=== PATIENT | male | born 1995 | race Caucasian/White ===

== ENCOUNTER 2017-01-19 13:48 | Emergency (ER) | payer OTHER ==
[2017-01-19 13:54] VITALS: O2SAT 96
--- NOTE | 2017-01-19 14:09 | EDPHY ---
H & P Stated Complaint: LAU AND "BODY SPASMS" 1ST EPISODE 1 WEEK [employer] Time Seen by Provider: 01/19/17 13:59 HPI/ROS: CHIEF COMPLAINT: Headache and spasms HISTORY OF PRESENT ILLNESS: The patient is a 21-year-old healthy man who comes to the emergency department sent from his primary Dr. Choudhury. He states that he has been having intermittent headaches recently and muscle spasms but that on Monday he had a severe headache the worst of his life. It began around 2 o' clock in the afternoon. He states that he began having muscle spasms throughout his entire body. He states that he was lying incapacitated on the ground for 13 hours until they stopped. He states that he began to loosen 8 that his legs were in family long and that every time he flipped over his body it was a new business transaction. Since that time he has had muscle soreness particularly in the evenings. He has also had return of his headache in the evenings. He did not lose consciousness. He denies chest pain or shortness of breath. He denies fevers or recent illness. He denies recent immunizations or trauma. No rashes. No seizure history. REVIEW OF SYSTEMS: Constitutional: denies: chills, fever, recent illness, recent injury EENTM: denies: blurred vision, double vision, nose congestion Respiratory: denies: cough, shortness of breath Cardiac: denies: chest pain, irregular heart rate, lightheadedness, palpitations Gastrointestinal/Abdominal: denies: abdominal pain, diarrhea, nausea, vomiting, blood streaked stools Genitourinary: denies: dysuria, frequency, hematuria, pain Musculoskeletal: See HPI Skin: denies: lesions, rash, jaundice, bruising Neurological: See HPI Hematologic/Lymphatic: denies: blood clots, easy bleeding, easy bruising Immunologic/allergic: denies: HIV/AIDS, transplant EXAM: GENERAL: Well-appearing, well-nourished and in no acute distress. HEAD: Atraumatic, normocephalic. EYES: Pupils equal round and reactive to light, extraocular movements intact, sclera anicteric, conjunctiva are normal. ENT: TMs normal, nares patent, oropharynx clear without exudates. Moist mucous membranes. NECK: Normal range of motion, supple without lymphadenopathy or JVD. LUNGS: Breath sounds clear to auscultation bilaterally and equal. No wheezes rales or rhonchi. HEART: Regular rate and rhythm without murmurs, rubs or gallops. ABDOMEN: Soft, nontender, normoactive bowel sounds. No guarding, no rebound. No masses appreciated. BACK: No CVA tenderness, no spinal tenderness, step-offs or deformities EXTREMITIES: Normal range of motion, no pitting or edema. No clubbing or cyanosis. NEUROLOGICAL: Cranial nerves II through XII grossly intact. Normal speech, normal gait. 5/5 strength, normal movement in all extremities, normal sensation , normal reflexes, ambulates without difficulty PSYCH: Normal mood, normal affect. SKIN: Warm, dry, normal turgor, no visible rashes or lesions. Source: Patient Exam Limitations: No limitations - Personal History Current Tetanus Diphtheria and Acellular Pertussis (TDAP): Yes - Medical/Surgical History Hx Asthma: No Hx Chronic Respiratory Disease: No Hx Diabetes: No Hx Cardiac Disease: No Hx Renal Disease: No Hx Cirrhosis: No Hx Alcoholism: No Other PMH: ESINOPHILIC GASTROENTERIIS - Family History Significant Family History: No pertinent family hx - Social History Smoking Status: Never smoked Alcohol Use: Sober Drug Use: None Constitutional: Initial Vital Signs Temperature (C) 37.0 C 01/19/17 13:52 Heart Rate 76 01/19/17 13:52 Respiratory Rate 16 01/19/17 13:52 Blood Pressure 136/65 H 01/19/17 13:52 O2 Sat (%) 96 01/19/17 13:52 O2 Delivery Mode Room Air Allergies/Adverse Reactions: banana Allergy (Verified 01/19/17 13:51) shrimp Allergy (Verified 01/19/17 13:51) Home Medications: Medication Instructions Recorded Flovent Diskus 01/19/17 Protonix 01/19/17 Singulair 01/19/17 Medical Decision Making - Diagnostics EKG Interpretation: An EKG obtained and was read and documented in trace view. Please see trace view for full reading and report. Sinus rhythm, no acute ischemic changes, ED Course/Re-evaluation: 3:30 p.m. the patient is doing well. He is currently asymptomatic. He states that he usually gets a headache in the evenings. He takes Aleve for this. I offered alternative headache medications and he declined. We discussed the CT and lab results which are reassuring. He will follow up with his primary doctor amy in the next 2 days. We discussed indications for returning here. Differential Diagnosis: Partial list of the Differential diagnosis considered include but were not limited to; migraine, anxiety, infection and although unlikely based on the history and physical exam, I also considered seizure, acute coronary disease, hemorrhage, tumor. I discussed these differential diagnoses and the plan with the patient as well as the usual and expected course. The patient understands that the diagnosis is provisional and that in medicine we are not always correct and that further workup is often warranted. Usual and customary warnings were given. All of the patient's questions were answered. The patient was instructed to return to the emergency department should the symptoms at all worsen or return, otherwise to followup with the physician as we discussed. - Data Points Laboratory Results: Laboratory Results 01/19/17 14:32 01/19/17 14:32 01/19/17 01/19/17 01/19/17 14:32 14:32 14:32 WBC 5.48 10^3/uL 10^3/uL (3.80-9.50) RBC 5.02 10^6/uL 10^6/uL (4.40-6.38) Hgb 15.3 g/dL g/dL (13.7-17.5) Hct 43.3 % % (40.0-51.0) MCV 86.3 fL fL (81.5-99.8) MCH 30.5 pg pg (27.9-34.1) MCHC 35.3 g/dL g/dL (32.4-36.7) RDW 12.2 % % (11.5-15.2) Plt Count 283 10^3/uL 10^3/uL (150-400) MPV 10.5 fL fL (8.7-11.7) Neut % (Auto) 53.2 % % (39.3-74.2) Lymph % (Auto) 40.3 % % (15.0-45.0) [place] % (Auto) 4.9 % % (4.5-13.0) Eos % (Auto) 0.7 % % (0.6-7.6) Baso % (Auto) 0.5 % % (0.3-1.7) Nucleat RBC Rel Count 0.0 % % (0.0-0.2) Absolute Neuts (auto) 2.91 10^3/uL 10^3/uL (1.70-6.50) Absolute Lymphs (auto) 2.21 10^3/uL 10^3/uL (1.00-3.00) Absolute Monos (auto) 0.27 10^3/uL L 10^3/uL (0.30-0.80) Absolute Eos (auto) 0.04 10^3/uL 10^3/uL (0.03-0.40) Absolute Basos (auto) 0.03 10^3/uL 10^3/uL (0.02-0.10) Absolute Nucleated RBC 0.00 10^3/uL 10^3/uL (0-0.01) Immature Gran % 0.4 % % (0.0-1.1) Immature Gran # 0.02 10^3/uL 10^3/uL (0.00-0.10) PT 13.2 SEC SEC (12.0-15.0) INR 1.01 (0.83-1.16) APTT 36.5 SEC SEC (23.0-38.0) Sodium 144 mEq/L mEq/L (134-144) Potassium 4.2 mEq/L mEq/L (3.5-5.2) Chloride 105 mEq/L mEq/L (97-110) Carbon Dioxide 22 mEq/l mEq/l (22-31) Anion Gap 17 mEq/L H mEq/L (8-16) BUN 15 mg/dL mg/dL (7-23) Creatinine 1.0 mg/dL mg/dL (0.7-1.3) Estimated GFR > 60 Glucose 103 mg/dL H mg/dL (70-100) Calcium 10.1 mg/dL mg/dL (8.5-10.4) Troponin I < 0.012 ng/mL ng/mL (0.000-0.034) Departure - Departure Disposition: Home, Routine, Self-Care Clinical Impression: Headache Condition: Fair Instructions: Acute Headache (ED) Referrals: Tessy Choudhury MD [Primary Care Provider] - 1-2 days without fail
--- NOTE | 2017-01-19 14:31 | CPEKG ---
Heart Rate: 69 RR Interval: 870 P-R Interval: 168 QRSD Interval: 104 QT Interval: 392 QTC Interval: 420 P [place]: 40 QRS [place]: 124 T Wave [place]: 10 EKG Severity - OTHERWISE NORMAL ECG - EKG Impression: SINUS RHYTHM EKG Impression: RIGHT AXIS DEVIATION Electronically Signed By: Narayan Burns 19-Jan-2017 14:36:41
[2017-01-19] MEDS ORDERED: IOPAMIDOL (ISOVUE 370) 100 ML BTL IV ONE (14:36)
[2017-01-19 14:39] LABS: % IMMATURE GRANULYOCYTES 0.4 % (0.0-1.1); ABSOLUTE IMMATURE GRANULOCYTES 0.02 10^3/uL (0.00-0.10); ADD DIFF? NO; ADD MORPH? NO; ADD SCAN? NO; ATYPICAL LYMPHOCYTE FLAG 90 (0-99); FRAGMENT RBC FLAG 20 (0-99); HEMATOCRIT 43.3 % (40.0-51.0); HEMOGLOBIN 15.3 g/dL (13.7-17.5); LEFT SHIFT FLG 0 (0-99); LIPEMIA HEMOLYSIS FLAG 90 (0-99); MEAN CELL HEMOGLOBIN 30.5 pg (27.9-34.1); MEAN CELL HEMOGLOBIN CONCENTR. 35.3 g/dL (32.4-36.7); MEAN CELL VOLUME 86.3 fL (81.5-99.8); MEAN PLATELET VOLUME 10.5 fL (8.7-11.7); PLATELET CLUMPS FLAG 0 (0-99); PLATELET COUNT 283 10^3/uL (150-400); RED BLOOD CELL COUNT 5.02 10^6/uL (4.40-6.38); RED CELL DISTRIBUTION WIDTH 12.2 % (11.5-15.2)
[2017-01-19 14:48] LABS: INR 1.01 (0.83-1.16); PROTIME(PATIENT) 13.2 SEC (12.0-15.0)
[2017-01-19 14:49] LABS: APTT 36.5 SEC (23.0-38.0)
[2017-01-19 14:55] LABS: ANION GAP 17 mEq/L (8-16); CALCIUM 10.1 mg/dL (8.5-10.4); CARBON DIOXIDE 22 mEq/l (22-31); CHLORIDE 105 mEq/L (97-110); GLOMERULAR FILTRATION RATE > 60; GLUCOSE 103 mg/dL (70-100); POTASSIUM 4.2 mEq/L (3.5-5.2); SODIUM 144 mEq/L (134-144)
[2017-01-19 15:05] LABS: TROPONIN I < 0.012 ng/mL (0.000-0.034)
[2017-01-19 16:13] VITALS: BP 112/76; PULSE 81; RESP 17; TEMP 98.4
== END 2017-01-19 16:12 | disposition home or self-care (01) ==
DX: R51 Headache (principal)
CPT/HCPCS: Q9967